=== PATIENT | male | born 1940 | race Caucasian/White ===

== ENCOUNTER 2018-04-20 07:05 | Observation (INO) ==
[2018-04-20] MEDS ORDERED: LORazepam 1 MG Tablet PO ONE (08:14)
--- NOTE | 2018-04-20 08:14 | ED ---
HPI General Chief Complaint: Psychiatric Symptoms Stated Complaint: Psych Eval Time Seen by Provider: 04/20/18 07:19 Source: patient Mode of arrival: ambulatory Limitations: no limitations History of Present Illness HPI Narrative: 77-year-old male presents to the emergency department voluntarily for psychiatric evaluation secondary to having overwhelming thoughts of wanting to harm himself this morning while he was out on a walk. He has had thoughts like this a few times before in the past couple months, but more overwhelming this morning and he says he "just could not get it out of his head." Went home and told his he needed to come to the emergency room for help. Is not having the thoughts at this time. Denies suicidal ideation at this time. No specific plan was thought about and he has no specific plan at this time. Denies homicidal ideations. Denies history of suicidal attempts. Denies auditory visual hallucinations. Denies psychiatric history, but is currently being treated with a probably exam 0.25 mg for anxiety, and he did take one prior to coming to the ER. Denies alcohol use, tobacco use, illicit drug use. Thinks his symptoms may have been aggravated back in August when his went into cardiac arrest and again in February. He is also currently being treated for pneumonia and was supposed to have a right pleural effusion drained last Monday, but they called and canceled. He supposed to receive IV antibiotics today at [address] Doshi, building repair maintenance supervisor. He denies chest pain. Reports shortness of breath, but states getting better. Has no other emergent medical complaints. Has history of pleural effusion, pneumonia, atrial fibrillation and takes Pradaxa, asthma, hypertension. Primary CARE providers Dr. Villela. General Practitioner is [facility] as he sees Dr. Wolf. Allergic to morphine sulfate and penicillin. Does have an appointment scheduled for May 16 with the [place] [facility] for his depression and anxiety. No other modifying factors or associated signs and symptoms. Related Data Home Medications Medication Instructions Recorded Confirmed albuterol sulfate [Ventolin HFA] 2 puff INHALATION Q4-6H PRN 01/24/18 04/20/18 atenolol 25 mg PO BID 01/24/18 04/20/18 dabigatran etexilate [Pradaxa] 150 mg PO BID 01/24/18 04/20/18 digoxin [Lanoxin] 0.125 mg PO DAILY 01/24/18 04/20/18 furosemide [Lasix] 20 mg PO DAILY 01/24/18 04/20/18 levofloxacin 500 mg PO DAILY 01/24/18 04/20/18 lisinopril 10 mg PO DAILY 01/24/18 04/20/18 mirabegron [Myrbetriq] 50 mg PO DAILY 01/24/18 04/20/18 omeprazole 20 mg PO DAILY 01/24/18 04/20/18 potassium chloride 10 meq PO Q OTHER DAY 01/24/18 04/20/18 prednisone 40 mg PO DAILY 01/24/18 04/20/18 simvastatin 20 mg PO QPM 01/24/18 04/20/18 tramadol 50 mg PO TID 01/24/18 04/20/18 alprazolam 0.25 mg PO BID PRN 04/20/18 04/20/18 Allergies Allergy/AdvReac Type Severity Reaction Status Date / Time morphine Allergy Severe HYPOTENSION, Verified 04/20/18 07:14 SOB penicillin G Allergy Severe HIVES, SOB Verified 04/20/18 07:14 Review of Systems ROS: all other systems reviewed are negative PMFSH History History Provided By: Patient Medical History Medical History Depression (Acute) A-fib (Acute) Back pain (Acute) Cardiac arrest (Acute) H/O urinary frequency (Acute) HTN (hypertension) (Acute) Hernia (Acute) High cholesterol (Acute) Inguinal hernia (Acute) Pacemaker (Acute) Pneumonia (Acute) TIA (transient ischemic attack) (Acute) Social History Social History Substance History: No History of Abuse Second Hand Smoke Exposure: No Smoking Status: Never smoker How Often Do You Have a Drink Containing Alcohol: Never Recent Travel in [facility] within the Last 8 Weeks: No Recent Out of Country Travel within the Last 8 Weeks: No Exam Narrative Exam Narrative: GENERAL: Well-nourished, well-developed elderly, male patient, in no acute distress; anxious appearing SKIN: Warm and dry. HEAD: Atraumatic. Normocephalic. EYES: Pupils equal and round. ENT: Mucosa pink and moist. NECK: Supple. Trachea midline. CARDIOVASCULAR: Regular rate and rhythm. No murmur appreciated. RESPIRATORY: No accessory muscle use. Clear to auscultation. Breath sounds equal bilaterally. GASTROINTESTINAL: Abdomen soft, non-tender, nondistended. Hepatic and splenic margins not palpable. Bowel sounds are active 4 quadrants. MUSCULOSKELETAL: No obvious deformities. No clubbing. No cyanosis. No edema. NEUROLOGICAL: Awake and alert. Oriented 3. No obvious cranial nerve deficits. Motor grossly within normal limits. Normal speech. Moves all extremities. 5/5 strength to all extremities. PSYCHIATRIC: No delusional thought processes. No hallucinations. Course Initial Documented Vital Signs Temperature 97.8 F 04/20/18 07:11 Pulse Rate 77 04/20/18 07:11 Respiratory Rate 18 04/20/18 07:11 Blood Pressure 168/75 H 04/20/18 07:11 Pulse Oximetry 96 04/20/18 07:11 Last Documented Vital Signs Temperature 98.1 F 04/20/18 10:33 Pulse Rate 70 04/20/18 10:33 Respiratory Rate 24 04/20/18 10:33 Blood Pressure 124/67 04/20/18 10:33 Pulse Oximetry 97 04/20/18 10:33 Medical Decision Making JAYLEN Attestation JAYLEN supervised visit: Yes Attestation: I, Dr. Rawls, have reviewed the advance practice practitioner's documentation and am in agreement, met with the patient face to face, made the diagnosis, and the medical decision making was done by me. *My assessment and Findings: Patient seen and evaluated with PA, please see PA note for further details. He is here because he is stating that he is very anxious, having suicidal thoughts, when was Marks acted in the ER by us. He has ongoing medical issues, right-sided pleural effusions, pneumonia, getting antibiotics as an outpatient as well. At this point, this does not appear to be the issue with his current visit. Workup did not show anything new. However , he will need further psychiatric care. Planning to medically admit for his ongoing medical needs and have psych evaluate him while he is here. [facility] Narrative Medical decision making narrative: 77-year-old male presents voluntarily for psychiatric evaluation for overwhelming thoughts of wanting to harm himself. Marks act initiated. He is currently being treated for pneumonia and right pleural effusion by building repair maintenance supervisor, Dr. Doshi. He is supposed to receive IV antibiotics today at 1 PM. Psych screen and labs ordered. Chest x-ray ordered. Chest x-ray concludes: Persistent or recurrent basilar infiltrates and effusions right worse than left. Call placed to patients building repair maintenance supervisor Dr. Doshi. Platelets 124 and are consistent with past levels. Otherwise CBC essentially unremarkable. BUN 24 and is consistent with past levels. Creatinine 1.36 and is elevated from 1.0 in December 2017. Magnesium 1.4. TSH 1.270. 1200: I spoke with Mariann, a nurse from Dr. Doshi's office, and she informed me the patient would be receiving Levaquin 500 mg IV and 40 mg Lasix IV today at his appointment that is scheduled for 1:00. She said the patient would then be put on 1 week of oral Levaquin 500 mg, starting tomorrow if the patient reported improvement in symptoms, which he is. I informed her of the x-ray findings. Patient has a follow-up appointment with Dr. Doshi on April 30. Levaquin and Lasix ordered. Medical Screen Exam Complete: Yes Emergency Medical Condition: Yes Differential Diagnosis Differential Diagnosis: Depression, anxiety, suicidal ideation, adjustment disorder, medical clearance for psychiatric evaluation Lab Data Result diagrams: 04/20/18 07:45 04/20/18 07:45 Lab Results 04/20/18 04/20/18 04/20/18 Range/Units 07:45 07:45 07:45 WBC 5.4 (4.0-11.0) th/mm3 RBC 3.93 L (4.50-5.90) mil/mm3 Hgb 13.4 (13.0-17.0) gm/dL Hct 39.5 (39.0-51.0) % MCV 100.7 H (80.0-100.0) fL MCH 34.0 (27.0-34.0) pg MCHC 33.8 (32.0-36.0) % RDW 14.5 (11.6-17.2) % Plt Count 124 L (150-450) th/mm3 MPV 9.7 (7.0-11.0) fL Neut % (Auto) 71.5 H (16.0-70.0) % Lymph % (Auto) 17.2 (9.0-44.0) % [place] % (Auto) 10.1 H (0.0-8.0) % Eos % (Auto) 0.8 (0.0-4.0) % Baso % (Auto) 0.4 (0.0-2.0) % Neut # (Auto) 3.9 (1.8-7.7) th/mm3 Lymph # (Auto) 0.9 L (1.0-4.8) th/mm3 [place] # (Auto) 0.5 (0.0-0.9) th/mm3 Eos # (Auto) 0.0 (0.0-0.4) th/mm3 Baso # (Auto) 0.0 (0.0-0.2) th/mm3 WBC Differential . Differential Comment Auto diff final Sodium 137 (136-145) meq/L Potassium 4.1 (3.5-5.1) meq/L Chloride 101 (98-107) meq/L Carbon Dioxide 25.2 (21.0-32.0) meq/L Anion Gap 11 (5-15) meq/L BUN 24 H (7-18) mg/dL Creatinine 1.36 H (0.60-1.30) mg/dL Estimated GFR 51 L (>89) mL/min Random Glucose 112 H (74-106) mg/dL Calcium 8.9 (8.5-10.1) mg/dL Magnesium 1.4 L (1.5-2.5) mg/dL Total Bilirubin 1.6 H (0.2-1.0) mg/dL AST 47 H (15-37) U/L ALT 28 (12-78) U/L Alkaline Phosphatase 156 H (45-117) U/L Total Protein 6.9 (6.4-8.2) g/dL Albumin 3.7 (3.4-5.0) g/dL TSH 1.270 (0.358-3.740) uIU/mL Urine Color (Yellw/Straw) Urine Clarity (Clear) Urine pH (5.0-8.5) Ur Specific [place] (1.002-1.035) Urine Protein (Neg-Trace) mg/dL Urine Glucose (UA) (Negative) mg/dL Urine Ketones (Negative) mg/dL Urine Occult Blood (Negative) Urine Nitrate (Negative) Urine Bilirubin (Negative) Urine Urobilinogen (Less than 2) mg/dL Ur Leukocyte Esterase (Negative) Urine RBC (0-3) /hpf Urine WBC (0-5) /hpf Hyaline Casts (0-3) /lpf Urine Mucus (Occasional) /lpf Micro UA Comment Ur Microscopic Review Urine Culture Comments Salicylates Less than 1.7 L (2.8-20.0) mg/dL Urine Opiates Screen (Neg) Acetaminophen Less than 2.0 L (10.0-30.0) mcg/mL Ur Barbiturates Screen (Neg) Ur Amphetamines Screen (Neg) U Benzodiazepines Scrn (Neg) Urine Cocaine Screen (Neg) U Cannabinoids Screen (Neg) Serum Alcohol Less than 3 (0-5) mg/dL 04/20/18 04/20/18 Range/Units 08:46 08:46 WBC (4.0-11.0) th/mm3 RBC (4.50-5.90) mil/mm3 Hgb (13.0-17.0) gm/dL Hct (39.0-51.0) % MCV (80.0-100.0) fL MCH (27.0-34.0) pg MCHC (32.0-36.0) % RDW (11.6-17.2) % Plt Count (150-450) th/mm3 MPV (7.0-11.0) fL Neut % (Auto) (16.0-70.0) % Lymph % (Auto) (9.0-44.0) % [place] % (Auto) (0.0-8.0) % Eos % (Auto) (0.0-4.0) % Baso % (Auto) (0.0-2.0) % Neut # (Auto) (1.8-7.7) th/mm3 Lymph # (Auto) (1.0-4.8) th/mm3 [place] # (Auto) (0.0-0.9) th/mm3 Eos # (Auto) (0.0-0.4) th/mm3 Baso # (Auto) (0.0-0.2) th/mm3 WBC Differential Differential Comment Sodium (136-145) meq/L Potassium (3.5-5.1) meq/L Chloride (98-107) meq/L Carbon Dioxide (21.0-32.0) meq/L Anion Gap (5-15) meq/L BUN (7-18) mg/dL Creatinine (0.60-1.30) mg/dL Estimated GFR (>89) mL/min Random Glucose (74-106) mg/dL Calcium (8.5-10.1) mg/dL Magnesium (1.5-2.5) mg/dL Total Bilirubin (0.2-1.0) mg/dL AST (15-37) U/L ALT (12-78) U/L Alkaline Phosphatase (45-117) U/L Total Protein (6.4-8.2) g/dL Albumin (3.4-5.0) g/dL TSH (0.358-3.740) uIU/mL Urine Color Yellow (Yellw/Straw) Urine Clarity Clear (Clear) Urine pH 5.0 (5.0-8.5) Ur Specific [place] 1.019 (1.002-1.035) Urine Protein 30 H (Neg-Trace) mg/dL Urine Glucose (UA) Negative (Negative) mg/dL Urine Ketones Negative (Negative) mg/dL Urine Occult Blood Negative (Negative) Urine Nitrate Negative (Negative) Urine Bilirubin Negative (Negative) Urine Urobilinogen 0.2 (Less than 2) mg/dL Ur Leukocyte Esterase Negative (Negative) Urine RBC 1 (0-3) /hpf Urine WBC 2 (0-5) /hpf Hyaline Casts 5 (0-3) /lpf Urine Mucus Few H (Occasional) /lpf Micro UA Comment Culture not ind Ur Microscopic Review Not Reportable Urine Culture Comments Culture not ind Salicylates (2.8-20.0) mg/dL Urine Opiates Screen Neg (Neg) Acetaminophen (10.0-30.0) mcg/mL Ur Barbiturates Screen Neg (Neg) Ur Amphetamines Screen Neg (Neg) U Benzodiazepines Scrn Pos H (Neg) Urine Cocaine Screen Neg (Neg) U Cannabinoids Screen Neg (Neg) Serum Alcohol (0-5) mg/dL Imaging Data Radiologist's impression: Chest X-Ray 04/20/18 07:42 CONCLUSION: Persistent or recurrent basilar infiltrates and effusions right worse than left Discharge Plan Discharge Disposition Patient Disposition: 30 Still Patient Discharge Condition Condition: Stable Discharge Details Anticipated Discharge Date: 04/20/18 Diagnosis: Suicidal ideation Physicians Team ED Provider: Kyle Rawls ED Midlevel Provider: Doreen Doshi Primary Care Provider: Librado Asencio Rxs /Orders / Referrals /Forms Prescriptions: No Action alprazolam 0.25 mg Tablet 0.25 mg PO BID PRN (Reason: Anxiety) RF: 0 prednisone 10 mg Tablet 40 mg PO DAILY RF: 0 atenolol 25 mg Tablet 25 mg PO BID RF: 0 potassium chloride 10 mEq Tablet Extended Release 10 meq PO Q OTHER DAY RF: 0 tramadol 50 mg Tablet 50 mg PO TID RF: 0 simvastatin 20 mg Tablet 20 mg PO QPM RF: 0 lisinopril 10 mg Tablet 10 mg PO DAILY RF: 0 omeprazole 20 mg Capsule,Delayed Release(Dr/Ec) 20 mg PO DAILY RF: 0 digoxin [Lanoxin] 125 mcg Tablet 0.125 mg PO DAILY RF: 0 furosemide [Lasix] 20 mg Tablet 20 mg PO DAILY RF: 0 levofloxacin 500 mg Tablet 500 mg PO DAILY RF: 0 albuterol sulfate [Ventolin HFA] 90 mcg/actuation Hfa Aerosol Inhaler 2 puff INHALATION Q4-6H PRN (Reason: Shortness Of Breath) RF: 0 dabigatran etexilate [Pradaxa] 150 mg Capsule 150 mg PO BID RF: 0 mirabegron [Myrbetriq] 50 mg Tablet Extended Release 24 Hr 50 mg PO DAILY RF: 0 Status ED Status: Medically Cleared
--- NOTE | 2018-04-20 08:21 | XR ---
EXAM DATE: 04/20/2018 8:16 AM EST AGE/SEX: 77 years / Male INDICATIONS: Short of breath, depression. CLINICAL DATA: This is the patient's initial encounter. Patient reports that signs and symptoms have been present for 1 day and indicates a pain score of 0/10. MEDICAL/SURGICAL HISTORY: Hypercholesterolemia. Hypertension. TIA. A-fib. Pacemaker. Inguina l hernia repair. TURP. Carotid stent. COMPARISON: [facility], CHEST 1V SINGLE AP, 01/24/2018. . FINDINGS: A pacing implement is present with control pack over left upper chest. Basilar infiltrates and effusi ons, right worse than left are grossly unchanged. Cardiac contours are stable with mild cardiac enlar gement CONCLUSION: Persistent or recurrent basilar infiltrates and effusions right worse than left Electronically signed by: Clive Ramsey MD 04/20/2018 8:20 AM EST
[2018-04-20 08:38] LABS: Baso % (Auto) 0.4 % (0.0-2.0); Eos % (Auto) 0.8 % (0.0-4.0); Hematocrit 39.5 % (39.0-51.0); Hemoglobin 13.4 gm/dL (13.0-17.0); Lymph # (Auto) 0.9 th/mm3 (1.0-4.8); Lymph % (Auto) 17.2 % (9.0-44.0); Mean Corpuscular HGB Conc 33.8 % (32.0-36.0); Mean Corpuscular Volume 100.7 fL (80.0-100.0); Mean Platelet Volume 9.7 fL (7.0-11.0); Mono # (Auto) 0.5 th/mm3 (0.0-0.9); Mono % (Auto) 10.1 % (0.0-8.0); Neut # (Auto) 3.9 th/mm3 (1.8-7.7); Neut % (Auto) 71.5 % (16.0-70.0); Platelet Count 124 th/mm3 (150-450); Red Blood Count 3.93 mil/mm3 (4.50-5.90); Red Cell Distribution Width 14.5 % (11.6-17.2); White Blood Count 5.4 th/mm3 (4.0-11.0)
[2018-04-20 09:06] LABS: Alkaline Phosphatase 156 U/L (45-117); Total Protein 6.9 g/dL (6.4-8.2)
[2018-04-20 10:20] LABS: Alanine Aminotransferase 28 U/L (12-78); Albumin 3.7 g/dL (3.4-5.0); Anion Gap 11 meq/L (5-15); Aspartate Aminotransferase 47 U/L (15-37); Blood Urea Nitrogen 24 mg/dL (7-18); Calcium 8.9 mg/dL (8.5-10.1); Carbon Dioxide 25.2 meq/L (21.0-32.0); Chloride 101 meq/L (98-107); Glomerular Filtration Rate 51 mL/min (>89); Glucose,Random 112 mg/dL (74-106); Magnesium 1.4 mg/dL (1.5-2.5); Sodium 137 meq/L (136-145)
[2018-04-20 10:26] LABS: Potassium 4.1 meq/L (3.5-5.1)
[2018-04-20 10:50] LABS: Bilirubin,Urine Negative (Negative); Clarity,Urine Clear (Clear); Color,Urine Yellow (Yellw/Straw); Glucose,Urine (UA) Negative (Negative); Hyaline Casts,Urine 5 /lpf (0-3); Leukocyte Esterase,Urine Negative (Negative); Mucus,Urine Few /lpf (Occasional); Nitrite,Urine Negative (Negative); Specific Gravity,Urine 1.019 (1.002-1.035)
[2018-04-20 10:52] LABS: Urobilinogen,Urine 0.2 mg/dL (Less than 2)
[2018-04-20 10:54] LABS: Amphetamine Screen,Urine Neg (Neg); Barbiturate Screen,Urine Neg (Neg); Cannabinoid Screen,Urine Neg (Neg); Cocaine Screen,Urine Neg (Neg)
[2018-04-20 10:59] LABS: Opiate Screen,Urine Neg (Neg)
[2018-04-20] MEDS ORDERED: Levofloxacin 500 mg Premix Inj 500 MG/100 ML PIGGYBACK IV.SIG ONE (12:01)
[2018-04-20] MEDS ORDERED: Bisacodyl 10 MG Supp RECTAL PRN (13:18)
--- NOTE | 2018-04-20 13:21 | P.HP ---
History of Present Illness Service: Hospitalist Primary Care Physician: Librado Asencio Chief Complaint: Suicidal ideations. History of Present Illness: Mr. Dominguez is a pleasant 77-year-old male with a history of depression , atrial fibrillation, pacemaker placement, left ventricular dysfunction who presents to the emergency department due to self harming thoughts. During a morning walk today, patient kept finding himself in self harming thoughts. He was able to counter those thoughts that these are irrational. However, he feels that in the recent months these thoughts are getting progressively stronger. Although he has not attempted to harm himself, he believes that is the next step. Overall patient feels that he has no reason to live anymore. Patient has been having shortness of breath for several months. 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 He received 5-day course of IV Levaquin. Upon arrival to the emergency department, no leukocytosis. BUN 24, creatinine 1.36, magnesium 1.4. Chest x- ray shows significant cardiomyopathy along with bilateral pleural effusion. Medical history: Hyperlipidemia, BPH, cardiomyopathy, atrial fibrillation, pacemaker placement Past surgical history: TURP Social history: He denies using tobacco or alcohol or illicit drugs. Family history: Father at 65 from stroke. Mother at age 92. Review of Systems All other systems reviewed negative except as stated in HPI [facility] - History History Provided By: Patient - Medical History Medical History: Medical History (Last Reviewed 04/20/18 @ 14:42 by Patty Skinner DO) Depression A-fib Back pain Cardiac arrest H/O urinary frequency HTN (hypertension) Hernia High cholesterol Inguinal hernia Pacemaker Pneumonia TIA (transient ischemic attack) - Surgical History Surgical History: Surgical History (Last Reviewed 04/20/18 @ 14:42 by Patty Skinner DO) S/P TURP (status post transurethral resection of prostate) - Tobacco History Second Hand Smoke Exposure: No Smoking Status: Never smoker - Alcohol History How Often Do You Have a Drink Containing Alcohol: Never - Substance Use History Substance History: No History of Abuse - Travel History Recent Travel in the [place] Within the Last 8 Weeks: No Recent Travel Out of the Country Within the Last 8 Weeks: No - Immunization History Tetanus Immunization: >5 Years Medications and Allergies Active Medications: Active Medications Acetaminophen (Tylenol) 650 mg PO Q4H PRN PRN Reason: Headache, fever, pain 1-4 Al Hydroxide/Mg Hydroxide (Milk Of Magnesia Liq) 30 ml PO Q12H PRN PRN Reason: Mild Constipation Bisacodyl (Dulcolax Supp) 10 mg RECTAL DAILY PRN PRN Reason: SEVERE CONSITIPATION Lactulose (Lactulose Liq) 30 ml PO DAILY PRN PRN Reason: SEVERE CONSITIPATION Ondansetron HCl (Zofran Inj) 4 mg IV.PUSH Q6H PRN PRN Reason: NAUSEA OR VOMITING Sennosides (Senokot) 17.2 mg PO Q12H PRN PRN Reason: Moderate Constipation Allergies Allergy/AdvReac Type Severity Reaction Status Date / Time morphine Allergy Severe HYPOTENSION, Verified 04/20/18 07:14 SOB penicillin G Allergy Severe HIVES, SOB Verified 04/20/18 07:14 Home Medications Medication Instructions Recorded Confirmed Type albuterol sulfate [Ventolin HFA] 2 puff INHALATION Q4-6H PRN 01/24/18 04/20/18 History atenolol 25 mg PO BID 01/24/18 04/20/18 History dabigatran etexilate [Pradaxa] 150 mg PO BID 01/24/18 04/20/18 History digoxin [Lanoxin] 0.125 mg PO DAILY 01/24/18 04/20/18 History furosemide [Lasix] 20 mg PO DAILY 01/24/18 04/20/18 History levofloxacin 500 mg PO DAILY 01/24/18 04/20/18 History lisinopril 10 mg PO DAILY 01/24/18 04/20/18 History mirabegron [Myrbetriq] 50 mg PO DAILY 01/24/18 04/20/18 History omeprazole 20 mg PO DAILY 01/24/18 04/20/18 History potassium chloride 10 meq PO Q OTHER DAY 01/24/18 04/20/18 History prednisone 40 mg PO DAILY 01/24/18 04/20/18 History simvastatin 20 mg PO QPM 01/24/18 04/20/18 History tramadol 50 mg PO TID 01/24/18 04/20/18 History alprazolam 0.25 mg PO BID PRN 04/20/18 04/20/18 History Exam Vital signs: Vital Signs 04/20/18 07:11 04/20/18 10:33 Temperature 97.8 F 98.1 F Pulse Rate 77 70 Respiratory Rate 18 24 Blood Pressure 168/75 H 124/67 Pulse Oximetry 96 97 Intake & Output 04/19/18 04/20/18 04/20/18 18:59 06:59 18:59 Weight 95.254 kg Narrative: GENERAL: This is a well-nourished, well-developed patient, in no apparent distress. SKIN: No rashes, ecchymoses or lesions. Warm and dry. HEAD: Atraumatic. Normocephalic. No temporal or scalp tenderness. EYES: Pupils equal round and reactive. No injection or drainage. ENT: Nose without bleeding, purulent drainage or septal hematoma. Airway patent. NECK: Trachea midline. No lymphadenopathy. Supple, nontender, no meningeal signs. CARDIOVASCULAR: Regular rate, irregularly irregular without murmurs, gallops, or rubs. No JVD. Bibasilar crackles noted. RESPIRATORY: Moderate air entry, no accessory muscle use. No wheezes, rales, or rhonchi. GASTROINTESTINAL: Abdomen soft, non-tender, nondistended. No guarding. MUSCULOSKELETAL: Extremities without clubbing, cyanosis. Lower extremity 2+ edema NEUROLOGICAL: Awake and alert. Cranial nerves II through XII intact. No focal neurological deficits. Normal speech. Results - Labs CBC & Chem 7: 04/20/18 07:45 04/20/18 07:45 Labs: Laboratory Results - last 24 hr 04/20/18 04/20/18 04/20/18 07:45 07:45 07:45 WBC 5.4 RBC 3.93 L Hgb 13.4 Hct 39.5 MCV 100.7 H MCH 34.0 MCHC 33.8 RDW 14.5 Plt Count 124 L MPV 9.7 Neut % (Auto) 71.5 H Lymph % (Auto) 17.2 Baxter % (Auto) 10.1 H Eos % (Auto) 0.8 Baso % (Auto) 0.4 Neut # (Auto) 3.9 Lymph # (Auto) 0.9 L Baxter # (Auto) 0.5 Eos # (Auto) 0.0 Baso # (Auto) 0.0 WBC Differential . Differential Comment Auto diff final Sodium 137 Potassium 4.1 Chloride 101 Carbon Dioxide 25.2 Anion Gap 11 BUN 24 H Creatinine 1.36 H Estimated GFR 51 L Random Glucose 112 H Calcium 8.9 Magnesium 1.4 L Total Bilirubin 1.6 H AST 47 H ALT 28 Alkaline Phosphatase 156 H Total Protein 6.9 Albumin 3.7 TSH 1.270 Urine Color Urine Clarity Urine pH Ur Specific [place] Urine Protein Urine Glucose (UA) Urine Ketones Urine Occult Blood Urine Nitrate Urine Bilirubin Urine Urobilinogen Ur Leukocyte Esterase Urine RBC Urine WBC Hyaline Casts Urine Mucus Micro UA Comment Ur Microscopic Review Urine Culture Comments Salicylates Less than 1.7 L Urine Opiates Screen Acetaminophen Less than 2.0 L Ur Barbiturates Screen Ur Amphetamines Screen U Benzodiazepines Scrn Urine Cocaine Screen U Cannabinoids Screen Serum Alcohol Less than 3 04/20/18 04/20/18 08:46 08:46 WBC RBC Hgb Hct MCV MCH MCHC RDW Plt Count MPV Neut % (Auto) Lymph % (Auto) Baxter % (Auto) Eos % (Auto) Baso % (Auto) Neut # (Auto) Lymph # (Auto) Baxter # (Auto) Eos # (Auto) Baso # (Auto) WBC Differential Differential Comment Sodium Potassium Chloride Carbon Dioxide Anion Gap BUN Creatinine Estimated GFR Random Glucose Calcium Magnesium Total Bilirubin AST ALT Alkaline Phosphatase Total Protein Albumin TSH Urine Color Yellow Urine Clarity Clear Urine pH 5.0 Ur Specific [place] 1.019 Urine Protein 30 H Urine Glucose (UA) Negative Urine Ketones Negative Urine Occult Blood Negative Urine Nitrate Negative Urine Bilirubin Negative Urine Urobilinogen 0.2 Ur Leukocyte Esterase Negative Urine RBC 1 Urine WBC 2 Hyaline Casts 5 Urine Mucus Few H Micro UA Comment Culture not ind Ur Microscopic Review Not Reportable Urine Culture Comments Culture not ind Salicylates Urine Opiates Screen Neg Acetaminophen Ur Barbiturates Screen Neg Ur Amphetamines Screen Neg U Benzodiazepines Scrn Pos H Urine Cocaine Screen Neg U Cannabinoids Screen Neg Serum Alcohol - Imaging Impressions Chest X-Ray 04/20/18 07:42 CONCLUSION: Persistent or recurrent basilar infiltrates and effusions right worse than left Caprini VTE Risk Assessment Caprini VTE Risk Assessment: Moderate/High Risk (score >= 2) Caprini Risk Assessment Model: Point Value = 1 Point Value = 2 Point Value = 3 Point Value = 5 Age 41-60 Minor surgery BMI > 25 kg/m2 Swollen legs Varicose veins or History of unexplained or recurrent spontaneous Oral contraceptives or hormone replacement Sepsis (< 1 month) Serious lung disease, including pneumonia (< 1 month) Abnormal pulmonary function Acute myocardial infarction Congestive heart failure (< 1 month) History of inflammatory bowel disease Medical patient at bed rest Age 61-74 Arthroscopic surgery Major open surgery (> 45 min) Laparoscopic surgery (> 45 min) Malignancy Confined to bed (> 72 hours) Immobilizing plaster cast Central venous access Age >= 75 History of VTE Family history of VTE Factor V Leiden Prothrombin [id number] Lupus anticoagulant Anticardiolipin antibodies Elevated serum homocysteine Heparin-induced thrombocytopenia Other congenital or acquired thrombophilia Stroke (< 1 month) Elective arthroplasty Hip, pelvis, or leg fracture Acute spinal cord injury (< 1 month) Prophylaxis Regimen: Total Risk Factor Score Risk Level Prophylaxis Regimen 0-1 Low Early ambulation 2 Moderate Order ONE of the following: *Sequential Compression Device (SCD) *Heparin 5000 units SQ BID 3-4 Higher Order ONE of the following medications: *Heparin 5000 units SQ TID *Enoxaparin/Lovenox 40 mg SQ daily (WT < 150 kg, CrCl > 30 mL/min) *Enoxaparin/Lovenox 30 mg SQ daily (WT < 150 kg, CrCl > 10-29 mL/min) *Enoxaparin/Lovenox 30 mg SQ BID (WT < 150 kg, CrCl > 30 mL/min) AND/OR *Sequential Compression Device (SCD) 5 or more Highest Order ONE of the following medications: *Heparin 5000 units SQ TID (Preferred with Epidurals) *Enoxaparin/Lovenox 40 mg SQ daily (WT < 150 kg, CrCl > 30 mL/min) *Enoxaparin/Lovenox 30 mg SQ daily (WT < 150 kg, CrCl > 10-29 mL/min) *Enoxaparin/Lovenox 30 mg SQ BID (WT < 150 kg, CrCl > 30 mL/min) AND *Sequential Compression Device (SCD) Assessment and Plan - Plan Mr. Dominguez is a pleasant 77-year-old male with a history of LV dysfunction, atrial fibrillation, depression who presents to the emergency department for an evaluation due to self harming thoughts. 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 Patient reports shortness of breath and leg swelling that has been worsening in the recent months. Suicidal ideations Depression Anxiety Patient is currently under Marks act. Psychiatry is consulted. We will continue sitter while patient is under [place] Act. Continue Xanax 0.25 mg p.o. twice daily as needed for anxiety. Acute on chronic congestive heart failure, systolic Likely nonischemic cardiomyopathy Reviewed echocardiogram from patient's picture copyist's office. Ejection fraction was 45% with significant LV dysfunction and global hypokinesis. Chest x-ray reviewed by me shows cardiomegaly and pleural effusion. Patient's clinical symptoms along with labs are not consistent with pneumonia. We will not continue Levaquin. We will obtain BNP as well as a limited echocardiogram. Start Lasix 40 mg IV twice daily. Upon discharge, consider torsemide instead of furosemide PO. Torsemide 20mg once or twice a day maybe reasonable. Depending on echocardiogram findings, we may consider carvedilol as well as an ARB in addition to diuretics Atrial fibrillation Status post pacemaker placement. Patient was on atenolol at home. If indicated for heart failure, carvedilol may be a better choice. Hold off using digoxin for now. Continue Pradaxa 150 mg p.o. twice daily Acute kidney injury Hypomagnesemia Baseline creatinine 1.0 in December 2017. Currently creatinine 1.36. With improved perfusion with diuretics, creatinine may improve. We will provide 2 g of magnesium sulfate IV. May need 2 more grams of magnesium sulfate Full code. Pradaxa.
[2018-04-20] MEDS: Mag Sulf 1 gm/100 ml Premix 100 ML IV.SIG SCH ×2 (16:13→17:37)
[2018-04-20] MEDS: ALPRAZolam 0.25 MG Tablet PO PRN (16:14)
--- NOTE | 2018-04-20 17:07 | P.PNPSY ---
Came to see patient in psychiatric consultation. secretary book keeper informs me he is off the floor at echo. I will return to see patient and complete consultation tomorrow, Monday. Agree with continuing sitter for safety at least until I can evaluate patient.
--- NOTE | 2018-04-20 17:19 | ECHRPT ---
Indication: Heart Failure CONCLUSIONS Mildly dilated left ventricle. Mild concentric left ventricular hypertrophy. The left ventricular systolic function is mildly reduced with an estimated ejection fraction in the range of 45- 50%. A pacemaker wire is noted. The left atrial size is severely dilated. The right atrial size is severely dilated. There is moderate to severe tricuspid regurgitation. BP: / HR: Rhythm: MEASUREMENTS (Male / Female) Normal Values Technical Quality:Technically difficult study 2D ECHO LV Diastolic Diameter PLAX 6.2 cm 4.2 - 5.9 / 3.9 - 5.3 cm LV Systolic Diameter PLAX 5.0 cm IVS Diastolic Thickness 1.2 cm 0.6 - 1.0 / 0.6 - 0.9 cm LVPW Diastolic Thickness 1.2 cm 0.6 - 1.0 / 0.6 - 0.9 cm LV Relative Wall Thickness 0.4 RV Internal Dim ED PLAX 3.9 cm LVOT Diameter 2.1 cm Aortic Root Diameter 3.6 cm LA Systolic Diameter LX 6.1 cm 3.0 - 4.0 / 2.7 - 3.8 cm FINDINGS LEFT VENTRICLE Mildly dilated left ventricle. Mild concentric left ventricular hypertrophy. The left ventricular systolic function is mildly reduced with an estimated ejection fraction in the range of 45- 50%. RIGHT VENTRICLE A pacemaker wire is noted. LEFT ATRIUM The left atrial size is severely dilated. RIGHT ATRIUM The right atrial size is severely dilated. ATRIAL SEPTUM Normal atrial septal thickness. AORTA The aortic root and proximal ascending aorta are normal in size on limited imaging. MITRAL VALVE Structurally normal mitral valve. . AORTIC VALVE Trileaflet aortic valve. . TRICUSPID VALVE There is moderate tricuspid regurgitation. PULMONARY VALVE The pulmonary valve is not well visualized. VESSELS The inferior vena cava is normal in size. PERICARDIUM No pericardial effusion. Marlo Ferguson MD, FACC, FSCAI (Electronically Signed) Final Date:20 April 2018 17:18
[2018-04-20] MEDS: Acetaminophen 325 MG Tablet PO PRN (20:43)
[2018-04-21] MEDS: Pantoprazole Sodium 20 MG DR Tablet PO SCH (08:17)
[2018-04-21] MEDS: ALPRAZolam 0.25 MG Tablet PO PRN (08:17)
[2018-04-21] MEDS ORDERED: ALPRAZolam 0.25 MG Tablet PO PRN (11:27)
--- NOTE | 2018-04-21 13:07 | MB ---
cc: Raymond Cabello MD DATE: 04/21/2018 REASON FOR CONSULTATION: Evaluation of CHF. HISTORY OF PRESENT ILLNESS: Stephen Dominguez is a 77-year-old man who sees my colleague, Dr. Stiles. The patient has chronic atrial fibrillation, a [employer] pacemaker, and has had problems with fluid retention. He was admitted for suicidal ideations. He has been noticed to be chronically short of breath, which has gotten worse lately. He is a little vague on the details. Chest x-ray showing some pleural effusions and he has significant lower extremity edema. So, he has been started on IV Lasix. No other acute complaints are noted. PAST MEDICAL HISTORY: Includes hypertension, atrial fibrillation, [employer] pacemaker, previous TIA, hyperlipidemia, depression, inguinal hernia, previous pneumonia. PAST SURGICAL HISTORY: Includes TURP. SOCIAL HISTORY: He has never smoked. ALLERGIES: INCLUDE PENICILLIN AND MORPHINE. PAST SURGICAL HISTORY: Includes TURP. REVIEW OF SYSTEMS: He has had past bladder spasms. PHYSICAL EXAMINATION: GENERAL: Well-developed, well-nourished, depressed white male in no acute distress. VITAL SIGNS: Charted. Telemetry showing intermittent VVI pacing with atrial fibrillation. HEENT: Unremarkable. NECK: Shows increased central venous pressure. CHEST: Shows diminished breath sounds at the bases. CARDIAC: Shows S1 and S2, irregular with a soft systolic murmur. ABDOMEN: Soft, nontender. EXTREMITIES: Reveal 2 to 3+ lower extremity edema. LABORATORY DATA: Chest x-ray showing effusions, right greater than left. Magnesium is 1.4, but repletion ordered. BNP is 114 which is mildly elevated. IMPRESSION: Chronic atrial fibrillation, known valvular heart disease with mitral and tricuspid regurgitation with mildly impaired left ventricular systolic function. This represents probably some mild acute systolic congestive heart failure. RECOMMENDATIONS: Agree with IV Lasix b.i.d. I am going to resume his digoxin 0.125 mg daily. I am going to change his atenolol to 3.125 b.i.d., which will be better for his mitral regurgitation. I added potassium supplement 20 b.i.d. Continue Lasix 40 IV b.i.d. Continue Pradaxa for stroke prevention. Further therapy to be determined. MD Saira Mcmillan , 12:01 PM , 12:08 PM
--- NOTE | 2018-04-21 16:02 | MB ---
cc: Chris Whitlock MD DATE: 04/21/2018 CLINICIAN REQUESTING CONSULTATION: RULA Pacheco REASON FOR CONSULTATION: Suicidal ideations. HISTORY OF PRESENT ILLNESS: Mr. Dominguez is a 77-year-old male with no reported previous psychiatric diagnoses, who presented to the emergency department for psychiatric evaluation. He reported to the ED provider that he was having thoughts of self-harm, although it appears that these were more intrusive, ego dystonic thoughts than actual suicidal ideation, according to the documentation from the ED provider. The patient has been admitted to the medical floor for management of acute on chronic congestive heart failure. He was placed under a Marks Act by the ED provider. Reviewing the electronic medical record, I see no previous psychiatric contact within our system. The patient was seen and examined. Chart reviewed. Case discussed with nursing staff. No behavioral issues noted. No evidence of any suicidality or homicidality while the patient has been under observation. A sitter is at the bedside. The patient's , Marylu, is additionally at the bedside, and the patient is agreeable to having her remain for the interview. On my examination today, the patient presents as quite anxious. He says that he has been having trouble sleeping. He endorses low mood and anxiety secondary to multiple health issues. He endorses some focus and concentration deficit. He denies any actual suicidal ideation. He says that in recent days, he has been feeling anxious about having suicidal ideation at some future point. It was this, and not actual suicidal ideation, that led him to seek emergent help. He denies any suicidal or homicidal ideation, intent or plan presently and says that he wants to live for his . He does have a somewhat neurotic personality style. No hypomanic or manic symptoms. No audiovisual hallucinations. No delusional material elicited. 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 Remainder of the psychiatric ROS is negative. No acute physical complaints. The patient's at the bedside has no concerns about the patient's safety. PAST PSYCHIATRIC HISTORY: The patient denies a history of psychiatric diagnosis. He denies a history of outpatient or inpatient psychiatric treatment. He denies a history of suicide attempts. He reports that he has previously tried several psychotropic agents for management of his anxiety and dysphoria offered to him by his outpatient providers, but he has found all of them to be intolerable. He cannot recall the names and so I called over to his [facility] and was able to ascertain that he was previously tried on Lexapro and Xanax. FAMILY HISTORY: The patient denies any family history of mental illness or suicide. CHEMICAL DEPENDENCY HISTORY: The patient reports a history of problematic drinking in the distant past, but he reports that he stopped drinking entirely after he obtained a DUI. He denies any substance use presently. SOCIAL HISTORY: The patient is . He has 1 son. He has a brother and sister who live locally. 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 He served in the [employer] and did see combat. He reports that he keeps a gun, but this is old and rusted and he does not have bullets for it. He has never had a suicide plan involving a gun. Denies any shinto or spiritual beliefs. PAST MEDICAL HISTORY: Includes a history of heart failure and atrial fibrillation, as well as hypertension and TIAs. MEDICATIONS: 1. Pradaxa 150 mg twice a day. 2. Carvedilol 3.125 mg twice a day. 3. Digoxin 125 mcg daily. 4. Lisinopril 5 mg twice a day. 5. Protonix 20 mg daily. 6. K-Dur 20 mEq twice a day. ALLERGIES: MORPHINE AND PENICILLIN G. REVIEW OF SYSTEMS: Except as noted in HPI, this is negative. PHYSICAL EXAMINATION: VITAL SIGNS: Temperature 98.0, pulse 85, respirations 18, blood pressure 106/63, pulse oximetry 94% on room air. Physical examination has been completed by the primary team. On my examination today, the patient appears to be in no acute physical distress. No motor abnormalities noted. LABORATORY DATA: Labs reviewed: CBC reveals macrocytosis without anemia and thrombocytopenia with a platelet count of 124. CMP reveals decreased GFR at 51 and mild transaminitis. BNP is elevated, most recently 114. TSH is within normal limits. Urinalysis is fairly bland except for 30+ protein. Urine toxicology is positive for benzodiazepines, although it does appear that a dose of Ativan was administered around the time of urine collection in the ED, and so this may not reflect outpatient benzodiazepine use. Serum alcohol was negative. MENTAL STATUS EXAMINATION: The patient is in hospital attire. He is awake and alert and oriented x3. He is well groomed. No motor abnormalities noted. Speech is within normal limits for rate, tone, and volume. Language and fund of knowledge are average. Focus and concentration are intact. Memory grossly intact on clinical exam. Mood is somewhat depressed and affect is anxious. Thought process is circumstantial as can be seen with patients with anxiety problems. No loosening of associations. No delusional material elicited. No audiovisual hallucinations and the patient does not appear internally stimulated. Denies suicidal or homicidal ideation, intent or plan. Insight and judgment are adequate. ASSESSMENT AND PLAN: 1. 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 This is a 77-year-old male with psychiatric history as detailed above, who is presently admitted to the medical floor under a Marks Act after presenting for psychiatric evaluation. The patient denies suicidal or homicidal ideation on my evaluation. He says that he wants to live for his . He does describe some anxiety and depression that I suspect are a component of adjustment disorder, but I can appreciate no severe depressive, anxious or psychotic illness in this patient at this time. He appears to be attending to his basic needs. He is agreeable and willing to pursue treatment for his psychiatric issues. Synthesizing this information and based on the available evidence, I director nursery school that the patient does not meet the Marks Act criteria, and I have lifted the Marks Act. Also, since the patient is denying suicidal ideation, I think we can do away with the sitter from a psychiatric standpoint. For management of the patient's dysphoria, I recommend initiating Remeron 15 mg at bedtime, as this will also help with sleep. You may continue the Xanax as needed as presently ordered, although it is important to be vigilant for any signs of worsened mental status with benzodiazepine use. The patient does not meet criteria for involuntary psychiatric hospitalization, but I have offered him voluntary psychiatric evaluation for management of his current symptoms and he will consider it. If the patient is desirous of voluntary psychiatric admission closer to discharge, this could be considered, and I would request that the psychiatric new vehicle sales consultant be asked to return to reevaluate the patient to determine if this is still indicated. If the patient is not psychiatrically admitted at the conclusion of this medical hospital stay, I recommend referring the patient for outpatient psychiatric services. I have also recommended to the patient's that she secure the home environment of potential means of harm to self or others out of an abundance of caution including, but not limited to, guns, knives and medications. I have counseled the patient and regarding warning signs for need to return to the psychiatric emergency room, especially in the event of suicidal ideation, as part of a general safety plan. Case discussed with RN. Thank you very much for this consultation. I will sign the case out to Dr. Dominguez on Monday. Chris Whitlock MD DBPatricia/rw , 01:51 PM , 02:07 PM MTDBryan
--- NOTE | 2018-04-21 16:03 | P.PNIM ---
Subjective Interval history: 77yo m presented to ED severly depressed with suicidal ideation and progressive LE edema and sob. He was Marks acted and admitted for iv abx and diuresis. pt seen and examined, he was seen earlier by Psychiatry and BA lifted. Patiet denies cp but co sob states LE edema much better, he also co insomnia and anxiety. Physical Exam Vital signs: Last Vital Signs Temp 98.0 F 04/21/18 12:00 Pulse 85 04/21/18 12:00 Resp 18 04/21/18 12:00 BP 106/63 04/21/18 12:00 Pulse Ox 94 L 04/21/18 12:00 Intake & Output 04/19/18 04/20/18 04/21/18 04/22/18 06:59 06:59 06:59 06:59 Intake Total 900 / 900 Balance 900 / 900 Weight 90.7 kg pleasant elderly 77yo w m very anxious heart s1s2 reg lungs decreased bs no w, no rales no rhonchi abd soft nondt pos bs ext +2 pitting edema, warm to touch, Results Labs CBC & Chem 7: 04/20/18 07:45 04/20/18 07:45 Imaging Imaging: ECHOCARDIOGRAM LEFT VENTRICLE Mildly dilated left ventricle. Mild concentric left ventricular hypertrophy. The left ventricular systolic function is mildly reduced with an estimated ejection fraction in the range of 45-50%. CXR FINDINGS: A pacing implement is present with control pack over left upper chest. Basilar infiltrates and effusions, right worse than left are grossly unchanged. Cardiac contours are stable with mild cardiac enlargementCONCLUSION: Persistent or recurrent basilar infiltrates and effusions right worse than left Assessment and Plan Plan ACUTE EXACERBATION SYSTOLIC/DIASTOLIC CHF chronic, EF 45-50% cont diuresis as tolerated, maximize cardiac medical managment, cardiology eval and recommendations appreciated CHRONIC AFIB w PPM and chronic ac on pradaxa VALVULAR HEART DZ - severe TR w biatrial enlargement ABN CXR w PULM INFILTRATES and pleural effusions, ? superimposed pna vs all due to chf, been on abx, on hold for now, will get ct chest after some diuresis, eval for perisstnt infiltrates or need for abx ANXIETY generalized cont anxiolytics as at home and per psych. HTN - cont asher as tolerated DYSLIPIDEMIA - cont statin DEPRESSION /SUICIDAL IDEATION - marks act lifted, psychiatric eval and recommendations appreciated. THROMBOCYTOPENIA - mild, chronic, stable ASHANTI - mild elevation of cr 1.4 likely due to chf, monitor on diuretics HYPOMAGNESEMIA - cont mg replacement Progress Note: Quality VTE Deep Vein Thrombosis/Pulmonary Embolism Present on Admission: No
[2018-04-21] MEDS ORDERED: Melatonin 5 MG Tablet PO PRN (16:30)
--- NOTE | 2018-04-21 19:03 | CT ---
EXAM DATE: 04/21/2018 6:57 PM EST AGE/SEX: 77 years / Male INDICATIONS: Pleural effusion. CLINICAL DATA: This is the patient's subsequent encounter. Patient reports that signs and symptoms h ave been present for 1 day and indicates a pain score of 0/10. MEDICAL/SURGICAL HISTORY: Hypertension. Cardiac arrest, Inguinal hernia Pacemaker. RADIATION DOSE: 15.42 CTDI (mGy) COMPARISON: POI, CT CHEST W/O CONTRAST, 01/31/2018. . TECHNIQUE: Multiple contiguous axial images were obtained through the chest without contrast. Image s were obtained in suspended respiration using multiple row detector helical technique. Using automa kaylan exposure control and adjustment of the mA and/or kV according to patient size, radiation dose was kept as low as reasonably achievable to obtain optimal diagnostic quality images. DICOM format imag e data is available electronically for review and comparison. FINDINGS: Panchamber enlargement of the heart and macrolobulated appearance of the liver. There is a small sony cardial effusion, not new but very slightly larger in the interim. There is a small right pleural effusion with mild right base atelectasis. No lymphadenopathy. No acute bony abnormality demonstrated. There are old right rib fractures. CONCLUSION: 1. Small right pleural effusion and mild right base atelectasis. 2. Panchamber enlargement of the heart. Small pericardial effusion. 3. Macrolobulated appearance of the visualized liver. Differential includes cirrhosis and passive co ngestion. Electronically signed by: Clive Burris MD 04/21/2018 7:02 PM EST
[2018-04-21] MEDS: Lisinopril 5 MG Tablet PO SCH (20:35)
[2018-04-21] MEDS ORDERED: Mirtazapine 15 MG Tablet PO SCH (21:00)
[2018-04-21] MEDS: Benzonatate 100 MG Capsule PO PRN (22:19)
[2018-04-22 05:45] LABS: Calcium 8.6 mg/dL (8.5-10.1); Carbon Dioxide 32.7 meq/L (21.0-32.0); Digoxin 0.3 ng/mL (0.8-2.0); Magnesium 1.5 mg/dL (1.5-2.5)
[2018-04-22 08:07] VITALS: BP 110/57; PULSE 84; RESP 17; TEMP 98.6; O2SAT 91
[2018-04-22] MEDS: Lisinopril 5 MG Tablet PO SCH (08:37)
[2018-04-22] MEDS: Pantoprazole Sodium 20 MG DR Tablet PO SCH (08:37)
[2018-04-22] MEDS: Acetaminophen 325 MG Tablet PO PRN (08:44)
[2018-04-22] MEDS: Benzonatate 100 MG Capsule PO PRN (08:51)
[2018-04-22] MEDS ORDERED: Digoxin 125 MCG Tablet PO SCH (09:00)
[2018-04-22] MEDS ORDERED: Meloxicam 7.5 MG Tablet PO SCH (09:45)
--- NOTE | 2018-04-22 13:16 | P.DS ---
DS: Providers Date of admission: 04/20/18 13:24 Primary care physician: Librado Asencio Consults: 04/20/18 13:15 Consult to Psychiatry Routine Consulting Provider: Chris Whitlock Reason for Consultation: Suicidal Ideations Notified:: Office Spoke with:: Farrah Date Notified:: 04/20/18 Time Notified:: 13:30 Ordering Provider: VANESSA 04/21/18 00:06 Consult to Cardiology Routine Consulting Provider: Raymond Cabello Does the patient have a Fast Food Crew Lead who follows them?: Yes Preferred Produce Department Supervisor:: Manny Pinto Reason for Consultation: Congestive heart failure, non-ischemic cardiomyopathy, Afib. Notified:: Service Spoke with:: KENIA Date Notified:: 04/21/18 Time Notified:: 00:29 Ordering Provider: JOE 04/21/18 10:10 HUB Only Consult Order Routine Consulting Provider: Guillermo Li Brief History from admission: Mr. Dominguez is a pleasant 77-year-old male with a history of depression, atrial fibrillation, pacemaker placement, left ventricular dysfunction who presents to the emergency department due to self harming thoughts. During a morning walk today, patient kept finding himself in self harming thoughts. He was able to counter those thoughts that these are irrational. However, he feels that in the recent months these thoughts are getting progressively stronger. Although he has not attempted to harm himself, he believes that is the next step. Overall patient feels that he has no reason to live anymore. Patient has been having shortness of breath for several months. Recently he has been [facility] with IV [facility] and [facility]. He received 5-day course of IV Levaquin. Upon arrival to the emergency department, no leukocytosis. BUN 24, creatinine 1.36, magnesium 1.4. Chest x-ray shows significant cardiomyopathy along with bilateral pleural effusion. Medical history: Hyperlipidemia, BPH, cardiomyopathy, atrial fibrillation, pacemaker placement Past surgical history: TURP Social history: He denies using tobacco or alcohol or illicit drugs. Family history: Father at 65 from stroke. Mother at age 92. Discharge Dx: ACUTE EXACERBATION SYSTOLIC/DIASTOLIC CHF chronic, EF 45-50%, biatrial enlargement CHRONIC AFIB w PPM and chronic ac on pradaxa VALVULAR HEART DZ - severe TR w biatrial enlargement ABN CXR w PULM INFILTRATES and pleural effusions, small pericardial effusion ANXIETY generalized HTN DYSLIPIDEMIA DEPRESSION /SUICIDAL IDEATION THROMBOCYTOPENIA ASHANTI and CONGESTIVE HEPATOPATHY due to chf HYPOMAGNESEMIA DS: Summary 77yo m presented with depression, anxiety and suicidal ideation and was found to be in decompensated diastolic hf, with significant LE edema. Pateint was also having a lot of nonproductive cough and exertional dyspnea. He was continued on iv lasix and seen by cardiology who adjusted his medications and recommended outpatient followup with cardiology. Patient was also seen by psychiatry who felt he did not meet criteria for BA and recommended voluntary psychiatric admission if patient wished otherwise outpatient followup, which patient preferred. Psychiatry also recommended addition of remeron at hs for insomnia. Patient was very concerned about his anxiety and was asking for an antidepressant. I discussed step silveira introduction of new medications and titration would be managed as outpatient upon followup. CT of chest was obtained to evaluate for pulm infiltrates as patient had been treated as outpatient for pneumonia. This showed no infiltrates and small pleural effusion. Pateint was stable on room air and much imroved with his edema, he was instructed at length re diet, medication compliance and follow up with his weather algorithm scientist. His then presented to bedside and case was discussed again at length and all questions were addressed. Time Spent with Patient Total time spent providing and/or coordinating discharge services: Greater than 30 minutes Quality: VTE Deep Vein Thrombosis/Pulmonary Embolism Present on Admission: No Exam Narrative Exam Narrative: elderly 77yo w m aaox3 nad but very anxious heart s1s2 reg lungs improved air momvmnt no wrr abd soft nondt pos bs ext +2 edema b/l improved, cvi changes noted Results Labs on day of discharge: Labs from last 24 hours 04/22/18 03:54 Sodium 145 Potassium 3.0 L D Chloride 106 Carbon Dioxide 32.7 H Anion Gap 6 BUN 19 H Creatinine 0.97 Estimated GFR 75 L Random Glucose 100 Calcium 8.6 Magnesium 1.5 Digoxin 0.3 L Impressions ITS Impressions Chest X-Ray 04/20/18 07:42 CONCLUSION: Persistent or recurrent basilar infiltrates and effusions right worse than left Chest CT 04/21/18 00:00 CONCLUSION: 1. Small right pleural effusion and mild right base atelectasis. 2. Panchamber enlargement of the heart. Small pericardial effusion. 3. Macrolobulated appearance of the visualized liver. Differential includes cirrhosis and passive congestion. Discharge Plan Discharge Disposition Patient Disposition: Discharge Home Discharge Condition Condition: Stable Discharge Order Discharge Orders: Discharge Order (Routine); Ordered 04/22/18 Ordered By: Shanice Delgado Discharge Details Anticipated Discharge Date: 04/22/18 Physicians Team Primary Care Provider: Librado Asencio Attending Provider: Shanice Delgado Other Providers: Chris Whitlock ; Raymond Cabello ; Guillermo Li Rxs /Orders / Referrals /Forms Prescriptions: New benzonatate [Tessalon Perles] 100 mg Capsule 100 mg PO Q8H PRN (Reason: Cough) Qty: 30 RF: 0 mirtazapine 15 mg Tablet 15 mg PO HS Qty: 30 RF: 0 furosemide [Lasix] 40 mg tablet 40 mg PO DAILY Qty: 30 RF: 0 Continue alprazolam 0.25 mg Tablet 0.25 mg PO BID PRN (Reason: Anxiety) RF: 0 meloxicam 7.5 mg Tablet 7.5 mg PO DAILY RF: 0 potassium chloride 10 mEq Tablet Extended Release 10 meq PO Q OTHER DAY RF: 0 tramadol 50 mg Tablet 50 mg PO TID RF: 0 simvastatin 20 mg Tablet 20 mg PO QPM RF: 0 lisinopril 10 mg Tablet 10 mg PO DAILY RF: 0 omeprazole 20 mg Capsule,Delayed Release(Dr/Ec) 20 mg PO DAILY RF: 0 digoxin [Lanoxin] 125 mcg Tablet 0.125 mg PO DAILY RF: 0 albuterol sulfate [Ventolin HFA] 90 mcg/actuation Hfa Aerosol Inhaler 2 puff INHALATION Q4-6H PRN (Reason: Shortness Of Breath) RF: 0 dabigatran etexilate [Pradaxa] 150 mg Capsule 150 mg PO BID RF: 0 mirabegron [Myrbetriq] 50 mg Tablet Extended Release 24 Hr 50 mg PO DAILY RF: 0 Discontinued prednisone 10 mg Tablet 40 mg PO DAILY RF: 0 atenolol 25 mg Tablet 25 mg PO BID RF: 0 furosemide [Lasix] 20 mg Tablet 20 mg PO DAILY RF: 0 levofloxacin 500 mg Tablet 500 mg PO DAILY RF: 0 Referrals: Librado Asencio M.D. [Primary Care Provider] - See Instructions (Follow up with CARDIOLOGY DR PINTO in 1 week Discharge Care Plan Goals for Congestive Heart Failure Directions to Meet your Goals: 1. Diet: Limit your salt by doing the following: * Limit canned, dried, packaged, and fast foods. * Don't add salt to your food. * Season foods with herbs instead of salt. * Watch how much liquids you drink. Drinking too much can make heart failure worse. Talk with your health care provider about how much you should drink each day. * Limit the amount of alcohol you drink. It may harm your heart. Women should have no more than 1 drink a day and men should have no more than 2. * When you eat out, request that your meals have no added salt. 2. Activity: * You can benefit from simple activities such as walking or gardening. * Exercising most days of the week can make you feel better. * Don't be discouraged if your progress is slow at first. * Rest as needed. * Stop activity if you develop symptoms such as chest pain, lightheadedness, or significant shortness of breath. * Find activities that you enjoy, such as brisk walking, dancing, swimming, or gardening. These will help you stay active and strengthen your heart. 3. Medicine: * Take your medicines exactly as prescribed. * Learn the names and purpose of each of your medicines. * Keep an accurate medicine list and current dosages with you at all times. Don' t skip doses. * If you miss a dose of your medicine, take it as soon as you remember. * If you miss a dose and it's almost time for your next dose, just wait and take your next dose at the normal time. Don't take a double dose. * If you are unsure, call your doctor's office. Make sure not to mix up your medicines or forget what you've taken the same day. 4. Weight Monitoring: * Weigh yourself every day. A sudden weight gain can mean your heart failure is getting worse. * Weigh yourself at the same time of day and in the same kind of clothes. * Ideally, weigh yourself first thing in the morning after you empty your bladder, but before you eat breakfast. * If your weight goes up by more than 2 pounds in 1 day, 5 pounds in 1 week, or whatever weight gain you were told by your doctor, this is a sign that you are retaining more fluid than you should be. * Clues to weight gain include checking your ankles for swelling, or noticing you are short of breath when you lie down. 5. When to call your doctor: Call your doctor right away if you have any of these signs of worsening heart failure: Sudden weight gain (more than 2 pounds in 1 day or 5 pounds in 1 week, or whatever weight gain you were told to report by your doctor) Trouble breathing not related to being active New or increased swelling of your legs or ankles Swelling or pain in your abdomen Breathing trouble at night (waking up short of breath, needing more pillows to breathe) Frequent coughing that doesn't go away Feeling much more tired than usual 6. Follow up: Do Not miss your follow-up appointment. Keep up with all your appointments and yearly check ups Call 911 right away if you have: Severe shortness of breath, such that you can't catch your breath even while resting Severe chest pain that does not resolve with rest or nitroglycerin [place], foamy mucus with cough and shortness of breath A continuous rapid or irregular heartbeat Passing out or fainting Stroke symptoms such as sudden numbness or weakness on one side of your face , arm, or leg or sudden confusion, trouble speaking or vision changes) Discharge Instructions Patient Printed Instructions: Heart Failure (DC), Depression (ED), Depression ( DC), Suicide Prevention for Older Adults (DC), Anxiety (DC), Shortness of Breath (DC) Status ED Status: Left Department Discharge Information Discharge Date/Time: 04/22/18 13:31
== END 2018-04-22 13:31 | disposition home or self-care (01) ==
LOC: NEDA 07:05 → NEPC 07:05 → N07 15:29
PROVIDERS: ADMIT Internal Medicine; ATTEND Internal Medicine
DX: Z79.01 Long term (current) use of anticoagulants; D69.6 Thrombocytopenia, unspecified; F06.4 Anxiety disorder due to known physiological condition; Z82.49 Family history of ischemic heart disease and other diseases of the circulatory system; I31.3 Pericardial effusion (noninflammatory); G47.00 Insomnia, unspecified; E83.42 Hypomagnesemia; I11.0 Hypertensive heart disease with heart failure; Z86.73 Personal history of transient ischemic attack (TIA), and cerebral infarction without residual deficits; Z81.8 Family history of other mental and behavioral disorders; E78.5 Hyperlipidemia, unspecified; I48.2 Chronic atrial fibrillation; I42.9 Cardiomyopathy, unspecified; Z95.0 Presence of cardiac pacemaker; R45.851 Suicidal ideations; J98.11 Atelectasis; Z88.5 Allergy status to narcotic agent; E78.00 Pure hypercholesterolemia, unspecified; Z82.3 Family history of stroke; I50.23 Acute on chronic systolic (congestive) heart failure; Z79.02 Long term (current) use of antithrombotics/antiplatelets; Z87.01 Personal history of pneumonia (recurrent); F43.23 Adjustment disorder with mixed anxiety and depressed mood; N40.0 Benign prostatic hyperplasia without lower urinary tract symptoms; N17.9 Acute kidney failure, unspecified; J45.909 Unspecified asthma, uncomplicated; F41.8 Other specified anxiety disorders; Z90.79 Acquired absence of other genital organ(s)